=== PATIENT | male | born 2000 | race African-American/Black ===

== ENCOUNTER 2025-01-20 11:39 | Emergency (ER) | payer MEDICAID ==
[~2025-01-20] VITALS: Ht 177.8 cm; Wt 73.0 kg
[2025-01-20 11:46] VITALS: O2SAT 100
[2025-01-20 11:53] VITALS: BP 137/91; PULSE 87; RESP 16; TEMP 36.7; O2SAT 100
[2025-01-20] MEDS ORDERED: AMOX1TAB16 MT (12:12)
== END 2025-01-20 12:45 | disposition home or self-care (01) ==
LOC: ER 11:39
DX: K04.7 Periapical abscess without sinus (principal)
CPT/HCPCS: 99283

== ENCOUNTER 2025-04-07 07:28 | Emergency (ER) | payer MEDICAID ==
[~2025-04-07] VITALS: Ht 185.4 cm; Wt 69.0 kg
[~2025-04-07 07:28] MED LIST: AMOX1TAB16 MT
[2025-04-07 07:42] VITALS: O2SAT 100
[2025-04-07] MEDS ORDERED: TOPUD MT (08:16)
[2025-04-07] MEDS ORDERED: AMOX-494 MT (08:16)
[2025-04-07] MEDS ORDERED: IBUP-1523 MT (08:16)
[2025-04-07 08:24] VITALS: BP 128/79; PULSE 87; RESP 16; TEMP 36.9; O2SAT 100
== END 2025-04-07 08:24 | disposition home or self-care (01) ==
LOC: ER 07:28
DX: J03.90 Acute tonsillitis, unspecified (principal); Z79.899 Other long term (current) drug therapy
CPT/HCPCS: 99283

== ENCOUNTER 2025-05-18 11:47 | Emergency (ER) | payer SELFPAY ==
[~2025-05-18] VITALS: Ht 188 cm; Wt 70.0 kg
[~2025-05-18 11:47] MED LIST changes: +AMOX-494 MT; +IBUP-1523 MT; +TOPUD MT
[2025-05-18 11:57] VITALS: O2SAT 100
[2025-05-18 12:51] LABS: CLARITY URINE CLEAR (CLEAR); COLOR URINE YELLOW (YELLOW); GLUCOSE URINE NEGATIVE (NEGATIVE); KETONES URINE TRACE (NEGATIVE); LEUKOCYTE ESTERASE URINE 2+ (NEGATIVE); NITRITE URINE NEGATIVE (NEGATIVE); OCCULT BLOOD URINE NEGATIVE (NEGATIVE); PH URINE 6.5 (4.5-8.0); PROTEIN URINE NEGATIVE (NEGATIVE); SPECIFIC GRAVITY URINE 1.024 (1.005-1.030); UROBILINOGEN URINE 1.0 E.U./dL (0.2-1.0)
[2025-05-18] MEDS: CEFTRIAXONE SODIUM 500MG VIAL IM ONE (13:08)
[2025-05-18 13:15] LABS: WBC URINE 50-100 /hpf (0-2)
[2025-05-18 13:16] LABS: BACTERIA URINE 1+; RBC URINE 0-2 /hpf (0-2); SQUAMOUS EPITHELIAL CELL URINE NONE SEEN /lpf (RARE/1+); YEAST URINE NONE SEEN
[2025-05-18 13:19] LABS: BASOPHILS % 0.9 % (0.0-2.0); EOSINOPHILS % 2.1 % (0.0-5.0); HEMATOCRIT. 47.7 % (42.0-52.0); HEMOGLOBIN. 16.0 g/dL (14.0-18.0); LYMPHOCYTES % 45.8 % (20.0-50.0); MEAN PLATELET VOLUME 9.0 fl (7.4-10.4); MONOCYTES % 10.8 % (2.0-8.0); NEUTROPHILS % 40.4 % (40.0-76.0); PLATELET 185 x1000/uL (130-400); RED BLOOD CELL COUNT 5.40 mill/uL (4.7-6.1); RED CELL DISTRIBUTION WIDTH 13.7 % (11.6-14.6)
[2025-05-18] MEDS ORDERED: DOXY100T2 MT (13:25)
[2025-05-18 13:33] VITALS: BP 131/80; PULSE 76; RESP 16; TEMP 36.9; O2SAT 100
[2025-05-21 08:10] LABS: CHLAMYDIA TRACHOMATIS NAA Negative (Negative); NEISSERIA GONORRHOEAE NAA Positive (Negative)
== END 2025-05-18 13:36 | disposition home or self-care (01) ==
LOC: ER 11:47
DX: R36.9 Urethral discharge, unspecified (principal); D64.9 Anemia, unspecified; Z20.2 Contact with and (suspected) exposure to infections with a predominantly sexual mode of transmission; Z79.899 Other long term (current) drug therapy
CPT/HCPCS: 87491; 87591; 81003; 85025; 86592; 87086; 36415; 96372; 99283; J0696; Z7610; 87389

== ENCOUNTER 2025-08-26 09:48 | Emergency (ER) | payer MEDICAID ==
[~2025-08-26] VITALS: Ht 167.6 cm; Wt 75.0 kg
[~2025-08-26 09:48] MED LIST changes: +DOXY100T2 MT
[2025-08-26 09:56] VITALS: TEMP 37.2; O2SAT 100
[2025-08-26] MEDS ORDERED: OXYC-662 MT (10:30)
[2025-08-26] MEDS ORDERED: AMOX1TAB16 MT (10:30)
[2025-08-26 10:41] VITALS: BP 120/79; PULSE 66; RESP 16; O2SAT 100
== END 2025-08-26 10:43 | disposition home or self-care (01) ==
LOC: ER 09:48
DX: K08.89 Other specified disorders of teeth and supporting structures (principal)
CPT/HCPCS: 99283